=== PATIENT | male | born 1980 | race Caucasian/White ===

== ENCOUNTER → 2019-06-25 | Outpatient (CLI) | payer OTHER ==
--- NOTE | 2019-06-25 10:21 | RADIOLOGY REPORT (SQ) ---
EXAM DESCRIPTION: DUPLEX ART/TAMMI FLOW COMPLETE COMPLETED DATE/TIME: 06/25/2019 10:10 am REASON FOR STUDY: AMY (I70.1) COMPARISON: None. TECHNIQUE: Realtime and static grayscale images acquired. Selected color Doppler, velocities and spe ctral images recorded. LIMITATIONS: None. FINDINGS: RIGHT KIDNEY: RENAL ARTERY VELOCITIES: 116.1 cm/sec. Segmental artery velocity 63.1 cm/sec. RENAL VEIN: Color doppler flow present, patent. VELOCITY RATIO: 1.4. Normal waveforms. KIDNEY: Normal size. No significant pathology. LEFT KIDNEY: RENAL ARTERY VELOCITIES: 84.5 cm/sec. Segmental artery velocity 54.5 cm/sec. RENAL VEIN: Color doppler flow present, patent. VELOCITY RATIO: 1.3. Normal waveforms. KIDNEY: Normal size. No significant pathology. BLADDER: Normal. OTHER: No other significant finding. IMPRESSION: NO DOPPLER EVIDENCE OF HEMODYNAMICALLY SIGNIFICANT RENAL ARTERY STENOSIS. COMMENT: NORMAL RENAL ARTERY/AORTA VELOCITY RATIO IS LESS THAN OR EQUAL TO 3.5. TECHNICAL DOCUMENTATION: JOB ID: [id number] [employer]- All Rights Reserved Reading location - IP/workstation name: [email or web address]
== END ==
LOC: RAD 09:27
PROVIDERS: ATTEND Internal Medicine Clinical Cardiac Electrophysiology
DX: I70.1 Atherosclerosis of renal artery (principal)
CPT/HCPCS: 93975

== ENCOUNTER 2019-11-25 05:48 | Day surgery (SDC) | payer OTHER ==
[2019-11-25 06:59] LABS: HEMATOCRIT 36.5 % (37.9-51.0); HEMOGLOBIN 12.7 g/dL (13.5-17.0); MEAN CORPUSCULAR HEMOGLOBIN 30.6 pg (27.0-33.4); MEAN CORPUSCULAR HGB CONC 34.7 g/dL (32.0-36.0); MEAN CORPUSCULAR VOLUME 88 fl (80-97); PLATELET COUNT 233 10^3/uL (150-450); RED BLOOD COUNT 4.14 10^6/uL (4.35-5.55); RED CELL DISTRIBUTION WIDTH 13.4 % (11.5-14.0); WHITE BLOOD COUNT 5.3 10^3/uL (4.0-10.5)
[2019-11-25 07:07] LABS: INTERNATIONAL RATION (INR) 0.97; PROTHROMBIN TIME 12.9 SEC (11.4-15.4)
[2019-11-25 07:08] LABS: PARTIAL THROMBOPLASTIN TIME 25.2 SEC (23.5-35.8)
[2019-11-25 07:14] LABS: BLOOD UREA NITROGEN 20 mg/dL (7-20)
[2019-11-25] MEDS ORDERED: MIDAZOLAM 2 MG/2 ML INJ ONE (08:23)
[2019-11-25] MEDS ORDERED: FENTANYL CITRATE INJ/PF 100 MCG/2 ML AMPUL ONE (08:23)
[2019-11-25 11:43] VITALS: BP 119/75
--- NOTE | 2019-11-25 12:15 | RADIOLOGY REPORT (SQ) ---
EXAM DESCRIPTION: CT NEEDLE PLACEMENT; CT BIOPSY RENAL IMAGES COMPLETED DATE/TIME: 11/25/2019 9:01 am; 11/25/2019 9:02 am REASON FOR STUDY: PROTEINURIA, RENAL BIOPSY; PROTEINURIA R80.9 PROTEINURIA, UNSPECIFIED R31.9 ARABELLA TURIA, UNSPECIFIED COMPARISON: None. FLUORO TIME: 6.1 seconds. 171 images submitted to PACS. LIMITATIONS: None. PROCEDURE: The procedure, risks, benefits, and alternatives were discussed with the patient in the p reprocedural area, and all questions were answered. Informed consent was obtained verbally and in wri ting. The patient was then brought to the CT suite, positioned prone on the CT gurney, and a time-out was p erformed. After that, axial images of the abdomen were obtained for targeting of the lower pole of t he left kidney. Based on review of the axial images an appropriate access site was selected on the . The area around selected access site was then prepped and draped 2% chlorhexidine utilizing standard sterile technique. After that, the access site was infiltrated with 1% lidocaine and an incision was made in the skin with a #11 blade. A 17 gauge coaxial needle was then advanced through the skin inci jeison and into the lower pole of the left kidney utilizing CT fluoroscopic guidance. After that, the i nner stylet of the coaxial needle was removed and 3 18 gauge core samples were obtained - the samples were collected and submitted to cytopathology in formalin. Then, as coaxial needle was removed, the biopsy track was embolized with Gelfoam. After the coaxial needle was removed axial images of the abdomen were repeated and reviewed ; the images demonstrated n o acute biopsy-related complication. The patient tolerated the procedure well without immediate complication. At the end of the procedure the patient's condition was unchanged from the preprocedural baseline. IV conscious sedation was administered at the direction of the performing physician by a brigitte zaragoza. 2 milligrams of Versed and 50 micrograms of fentanyl. Physiologic monitoring was provided befor e, during, and after sedation. The total sedation time was 30 minutes. Documentation of mmbs-bi-vbzo time the performing proceduralist spent monitoring the patient: 15 min utes. IMPRESSION: Successful CT-guided biopsy of the lower pole of the left kidney as detailed above. COMMENT: Patient medication list reviewed: Yes- Quality ID# 130:Eligible professional attests to doc umenting in the medical record they obtained, updated, or reviewed the patient's current medications. Quality ID #76: The patient was prepped and draped using maximum sterile barrier technique including cap, mask, sterile gown, sterile gloves, a large sterile sheet, hand hygiene, and 2% Chlorhexidine fo r cutaneous antisepsis. When ultrasound is used, sterile ultrasound techniques are followed requiring sterile gel and sterile probes. Quality ID 145: Final reports for procedures using fluoroscopy that document radiation exposure lizy dequan, or exposure time and number of fluorographic images (if radiation exposure indices are not avail able) Quality ID# 436: Final reports with documentation of one or more dose reduction techniques (e.g., Aut omated exposure control, adjustment of the mA and/or kV according to patient size, use of iterative r econstruction technique) TECHNICAL DOCUMENTATION: JOB ID: [id number] 2010 [employer]- All Rights Reserved Reading location - IP/workstation name: [email or web address]
== END 2019-11-25 11:03 | disposition home or self-care (01) ==
LOC: RAD 05:48
PROVIDERS: ATTEND Internal Medicine Nephrology
DX: R80.9 Proteinuria, unspecified (principal); R31.9 Hematuria, unspecified; I12.9 Hypertensive chronic kidney disease with stage 1 through stage 4 chronic kidney disease, or unspecified chronic kidney disease; N18.9 Chronic kidney disease, unspecified
CPT/HCPCS: 36415; 84520; 82565; 85027; 85610; 85730; 88346 ×2; 88348 ×2; 88313 ×2; 77012; 50200; J2250; J3010

== ENCOUNTER → 2020-03-28 | Outpatient (CLI) | payer OTHER ==
--- NOTE | 2020-03-28 11:14 | RADIOLOGY REPORT (SQ) ---
EXAM DESCRIPTION: BARIUM SWALLOW ESOPHAGUS IMAGES COMPLETED DATE/TIME: 03/28/2020 9:56 am REASON FOR STUDY: R13.10 DYSPHAGIA, UNSPECIFIED R13.10 DYSPHAGIA, UNSPECIFIED COMPARISON: None. TECHNIQUE: Under fluoroscopic guidance, patient ingested effervescent granules followed by thick and thin barium. Fluoroscopic spot images and routine radiographic images acquired and stored on PACS. 12 MM BARIUM TABLET GIVEN: Yes. No significant delay in passage. LIMITATIONS: None. FLUOROSCOPY TIME: FLUORO TIME: 1.9 minutes. 8 images submitted to PACS. FINDINGS: NEUROMUSCULAR COORDINATION OF SWALLOW: Normal. No aspiration. ESOPHAGEAL MOTILITY: Normal peristalsis. No esophageal spasm. ESOPHAGEAL MUCOSA: Normal mucosa without masses or ulceration. GASTRO-ESOPHAGEAL JUNCTION: Small sliding hiatal hernia. No significant reflux seen or elicited. 12 mm barium tablet passed through the GE junction without delay. NON-GI TRACT STRUCTURES: No significant finding. OTHER: No other significant finding. IMPRESSION: SMALL SLIDING HIATAL HERNIA. NO REFLUX SEEN. COMMENT: Quality ID 145: Final reports for procedures using fluoroscopy that document radiation exp osure indices, or exposure time and number of fluorographic images (if radiation exposure indices are not available) TECHNICAL DOCUMENTATION: JOB ID: [id number] 2010 [employer]- All Rights Reserved Reading location - IP/workstation name: [email or web address] [id number]
== END ==
LOC: RAD 09:19
PROVIDERS: ATTEND Internal Medicine Gastroenterology
DX: K44.9 Diaphragmatic hernia without obstruction or gangrene (principal); R13.10 Dysphagia, unspecified
CPT/HCPCS: 74220